=== PATIENT | female | born 1945 | race Caucasian/White ===

== ENCOUNTER 2022-04-28 10:57 | Emergency (ER) | payer MEDICARE, BC, SELFPAY ==
[2022-04-28 10:58] VITALS: BP 166/66; PULSE 82; RESP 18; TEMP 36.4; O2SAT 100; BMI 28.3
--- NOTE | 2022-04-28 11:13 | EKG12_ITS ---
Test Reason : DIZZINESS Blood Pressure : / mmHG Vent. Rate : 062 BPM Atrial Rate : 062 BPM P-R Int : 158 ms QRS Dur : 086 ms QT Int : 438 ms P-R-T Axes : 034 -26 018 degrees QTc Int : 444 ms Normal sinus rhythm Low voltage QRS Borderline ECG Confirmed by YARELI MAYES, MENDEZ ([id number]), scientific publications editor SHAHRIAR OLSON ([id number]) on 04/29/2022 9:17:14 AM Referred By: FIDELIA/NILO Confirmed By:MENDEZ DOWNS MD
--- NOTE | 2022-04-28 11:44 | EX.ED.DYSGE1 ---
HPI History of Present Illness Chief Complaint: Dizziness Informant: patient Onset/Context/Timing Onset: Days (4) Context: Sudden Onset Timing: Waxes and wanes Quality: Nauseated Location: Generalized Worsened by: Noise, lights Relieved by: Nothing Associated Symptoms Associated Symptoms: Syncopal episode last evening Narrative Narrative: Patient presents with dizziness and vertigo that has been getting worse over the past 4 days. Patient states this feels like previous episodes of vertigo but it is worse. Patient admits to some nausea but denies any vomiting. Patient states she has not eaten or drinking anything in the last 4 days due to the nausea. Patient states her symptoms are worse with noises and with lights. Patient states she did have a syncopal episode last night. Patient states she stood up and became dizzy and then passed out for a few seconds. Patient denies any chest pain or palpitations. Patient also admits to a recent cough. Patient states she has been taking meclizine at home with no improvement. [facility] Medical History (Updated 04/28/22 @ 14:[address] Ez Dalal DO) HTN (hypertension) Hypercholesterolemia Vertigo Home Medications diazepam 2 mg tablet 2 mg PO TID PRN PRN Vertigo #10 TABLETS 04/28/22 [Rx Last Taken Unknown] Allergy/AdvReac Type Severity Reaction Status Date / Time No Known Allergies Allergy Verified 04/28/22 10:58 Surgical History (Updated 04/28/22 @ 11:[address] Ez Dalal DO) Hx of removal of cyst Hx of tubal ligation Social History Smoking Status: Never smoker ROS ROS ED Constitutional Constitutional ED: Denies chills or fever(s) Eyes Eyes: Denies blurry vision or change in vision ENT ENT ED: Reports rhinorrhea; Denies sore throat Cardiovascular Cardiovascular: Denies chest pain or palpitations Respiratory/Chest Respiratory/Chest: Reports cough; Denies dyspnea Gastrointestinal Gastrointestinal: Reports nausea; Denies vomiting Genitourinary Genitourinary ED: Denies dysuria or hematuria Musculoskeletal Musculoskeletal: Denies back pain or neck pain Integumentary Denies abscess or rash Neurologic Neurologic: Reports headache(s); Denies weakness Allergic/Immunologic Allergic/Immunologic ED: Denies mouth swelling or urticaria EXAM Physical Exam Const Vital Signs: 04/28/22 10:58 04/28/22 11:08 04/28/22 12:56 Temperature 97.6 F L Temperature Source Temporal Pulse Rate 82 Pulse Rate [Lying] 77 Pulse Rate [Sitting (for 1 minute prior to obtaining)] 80 Pulse Rate [Standing (for 1 minute prior to obtaining)] 78 Respiratory Rate 18 Respiratory Effort Normal Respiratory Pattern Normal Blood Pressure 166/66 H Blood Pressure [Lying] 145/55 H Blood Pressure [Sitting (for 1 minute prior to obtaining)] 161/60 H Blood Pressure [Standing (for 1 minute prior to obtaining)] 132/63 H Blood Pressure Mean 99 Blood Pressure Mean [Lying] 85 Blood Pressure Mean [Sitting (for 1 minute prior to obtaining)] 93 Blood Pressure Mean [Standing (for 1 minute prior to obtaining)] 86 Pulse Ox 100 Oxygen Delivery Method Room Air 04/28/22 13:00 Temperature Temperature Source Pulse Rate 78 Pulse Rate [Lying] Pulse Rate [Sitting (for 1 minute prior to obtaining)] Pulse Rate [Standing (for 1 minute prior to obtaining)] Respiratory Rate 16 Respiratory Effort Respiratory Pattern Blood Pressure 132/63 H Blood Pressure [Lying] Blood Pressure [Sitting (for 1 minute prior to obtaining)] Blood Pressure [Standing (for 1 minute prior to obtaining)] Blood Pressure Mean 86 Blood Pressure Mean [Lying] Blood Pressure Mean [Sitting (for 1 minute prior to obtaining)] Blood Pressure Mean [Standing (for 1 minute prior to obtaining)] Pulse Ox 99 Oxygen Delivery Method Room Air Positive well nourished and well developed General Appearance ED: well developed and NAD HEENT Reports moist mucous membranes Eyes PERRL and EOMs intact bilaterally Eyes Narrative: There is some nystagmus noted with left lateral gaze. Neck supple and no JVD Resp normal respiratory effort and clear to auscultation bilaterally Cardio regular rate and regular rhythm GI normal to inspection, nondistended, normoactive bowel sounds and non-tender Palpation: soft Extremity normal to inspection General Extremety ED: Negative for edema or tenderness General Extremity: Negative for edema Neuro oriented x3, CN's II-XII intact bilaterally and no sensory deficits noted Sensorium / Orientation: alert Motor Exam: strength 5/5 throughout Psych mental status grossly normal Skin no rashes or lesions noted MDM MDM MDM Narrative Medical decision making narrative: Patient was given IV fluids, Reglan, and Benadryl. Patient was given a dose of Valium. CT scan of the brain was obtained. There are chronic changes. There is no acute intracranial abnormality. This was interpreted by the radiologist and reviewed by myself. EKG was obtained. On my interpretation, it showed a normal sinus rhythm with a rate of 62. HI interval, QRS interval, and QTc intervals were all normal. There is borderline left axis deviation at -26. There are no acute ST or T wave changes. CBC and basic metabolic profile were within normal limits. Urinalysis does not show any evidence of urinary tract infection or hematuria. Patient feels better on reevaluation and wants to go home. Patient was given a prescription for a short course of Valium. Patient was instructed to follow-up with her primary care physician in 5 to 7 days. Patient understood and was agreeable with the plan. All questions were answered. Lab Data Attestation: I reviewed the patient's lab results. Labs: Laboratory Results - last 24 hr 04/28/22 04/28/22 04/28/22 11:43 11:43 13:28 WBC 6.1 RBC 4.59 Hgb 14.4 Hct 42.1 MCV 91.7 MCH 31.4 MCHC 34.2 RDW Std Deviation 40.1 RDW Coeff of [place] 11.9 Plt Count 184 MPV 11.2 Immature Gran % (Auto) 0.500 Neut % (Auto) 73.5 H Lymph % (Auto) 15.8 L [place] % (Auto) 9.6 Eos % (Auto) 0.3 Baso % (Auto) 0.3 Absolute Neuts (auto) 4.5 Absolute Lymphs (auto) 0.97 Nucleated RBC % 0 Sodium 137 Potassium 3.3 L Chloride 101 Carbon Dioxide 27.0 Anion Gap 9 BUN 14 Creatinine 0.80 Estim Creat Clear Calc 43.73 Est GFR (MDRD) Af Amer 89 Est GFR (MDRD) Non-Af 74 BUN/Creatinine Ratio 17.5 Glucose 118 H Calcium 9.2 Urine Color Straw Urine Clarity Clear Urine pH 6.5 Ur Specific [place] 1.010 Urine Protein 15 H Urine Glucose (UA) Normal Urine Ketones 15 H Urine Occult Blood Negative Urine Nitrite Negative Urine Bilirubin Negative Urine Urobilinogen Normal Ur Leukocyte Esterase 100 H Urine RBC 0 SEEN Urine WBC 0-5 SEEN Ur Squamous Epith Cells 0-5 SEEN Urine Bacteria 1+ Urine Mucus 0 SEEN Radiography Diagnostic Testing: Clinical Impression(s) from Imaging Studies Brain CT 04/28/22 11:48 IMPRESSION: Chronic involutional changes of the brain. Mild degree of mucosal thickening along the inferior aspect of the left maxillary sinus and ethmoid sinuses. Electronically Signed: Amrik Craig MD at 12:54 EDT , EKG Initial EKG: Attestation: I personally reviewed and interpreted this EKG as follows: Interpretation: Sinus Rhythm (62) and No Acute Injury Pattern Prior EKG tracings: not available for review Prior: No Prior Discharge Plan Triage Chief Complaint: Dizziness Other Complaint: Nausea/Vomiting ED Provider: Ez Dalal Dx/Rx/DC Orders Clinical Impression: Vertigo, Headache Instructions: ED Vertigo, Unspecified Prescriptions: New diazepam [diazepam] 2 mg tablet 2 mg PO TID PRN PRN (Reason: Vertigo) Qty: 10 0RF Primary Care Provider: Sylvester Willson Referrals: Sylvester Willson DO [Primary Care Provider] - Keep Franko appointment Disposition Disposition: Home, Self Care
--- NOTE | 2022-04-28 11:48 | CT_ITS ---
STUDY: CT BRAIN WITHOUT CONTRAST REASON FOR EXAM: Female, 76 years old. Headache RADIATION DOSAGE (If Supplied By Facility): CTDIvol = ( 44.99 ) mGy, DLP = ( 748.30 ) mGycm TECHNIQUE: Transaxial CT imaging of the brain was performed without administration of intravenous contrast material. Individualized dose optimization techniques were used for this CT. COMPARISON: No relevant priors. FINDINGS: Normal soft tissue structures. Normal calvarium. There is mild cerebral atrophy with widening of the extra-axial spaces and ventricular dilatation. Normal white matter tracts of the cerebral hemispheres. Normal basal ganglia and thalami. Normal brainstem. Normal cerebellum. There is no intracranial hemorrhage. There are no findings of an acute ischemic infarction. Atherosclerotic calcification of the cavernous portions of the internal carotid arteries bilaterally. Mild degree of mucosal thickening along the inferior aspect of the left maxillary sinus and the ethmoid sinuses bilaterally. CT/Brain/Head without Contrast IMPRESSION: Chronic involutional changes of the brain. Mild degree of mucosal thickening along the inferior aspect of the left maxillary sinus and ethmoid sinuses. Electronically Signed: Amrik Craig MD at 12:54 EDT ,
[2022-04-28] MEDS: DiphenhydrAMINE 50 MG/ML Syringe 25 MG IV (12:08)
[2022-04-28] MEDS: 0.9% Normal Saline 1,000 ML 1000 ML IV (12:08)
[2022-04-28] MEDS: Metoclopramide 10 MG/2 ML Vial IV (12:08)
[2022-04-28] MEDS: diazePAM 5 MG Tablet 2.5 MG PO (12:08)
[2022-04-28 12:15] LABS: Absolute Lymphocyte Count 0.97 X10^3/uL (0.83-4.51); Absolute Neutrophil Count 4.5 X10^3/uL (2.0-7.7); Basophil# 0.02 X10^3/uL; Basophil% 0.3 % (0-1); Eosinophil# 0.02 X10^3/uL; Eosinophils% 0.3 % (0-5); Hematocrit 42.1 % (37-47); Hemoglobin 14.4 g/dL (12.0-15.0); Lymphocyte # 0.97 X10^3/ul (0.83-4.51); Lymphocyte % 15.8 % (19-41); Mean Corp Hgb Conc 34.2 g/dL (32-36); Mean Corpuscular Hgb 31.4 pg (27.0-32.0); Mean Corpuscular Volume 91.7 fL (81-99); Mean Platelet Vol. 11.2 fl (6.2-12.0); Monocyte# 0.59 X10^3/uL; Monocyte% 9.6 % (0-10); NRBC Flagged by Analyzer 0 % (0-5); Neutrophil # 4.49 X10^3/uL (2.7-7.7); Neutrophil % 73.5 % (47-70); Platelet Count 184 K/mm3 (150-450); RBC Distribution Width CV 11.9 % (11.6-14.6); RBC Distribution Width SD 40.1 fl (35.1-43.9); Red Blood Count 4.59 M/mm3 (4.2-5.4); White Blood Count 6.1 K/mm3 (4.4-11.0)
[2022-04-28 12:27] LABS: Anion Gap 9 (5-15); BUN 14 mg/dL (7-18); BUN/Creat Ratio 17.5 RATIO (10-20); Calcium,Total 9.2 mg/dL (8.5-10.1); Chloride 101 mmol/L (98-107); EST Glomerular Filtration Rate 74 mL/min (>60); Est Glom Filt Rate - Afr Amer 89 mL/min (>60); Estimated Creatinine Clearance 43.73 ml/min; Glucose 118 mg/dL (74-106); Potassium 3.3 mmol/L (3.5-5.1); Sodium Level 137 mmol/L (136-145)
[2022-04-28 12:56] VITALS: BP 132/63; BP 145/55; BP 161/60; PULSE 77; PULSE 78; PULSE 80
[2022-04-28 13:00] VITALS: BP 132/63; PULSE 78; RESP 16; O2SAT 99
[2022-04-28 13:33] LABS: Mucous, Urine 0 SEEN /hpf (<or=2+); Red Blood Cells-Urine 0 SEEN /hpf (0-5)
[2022-04-28 13:34] LABS: Color, Urine Straw (Yellow); Glucose, Dipstick Normal (Normal); Ketone-Dipstick 15 mg/dl (Negative); Leukocyte Esterase-Dipstick 100 /ul (Negative); Nitrite-Dipstick Negative (Negative); Occult Blood-Urine Negative /ul (Negative); Protein-Dipstick 15 mg/dl (Negative); Urine Bilirubin Dipstick Negative (Negative); Urine Clarity Clear (Clear); Urine Urobilinogen Normal (Normal); Urine pH 6.5 (5.0 - 8.0)
[2022-04-28 13:42] LABS: Squamous Epithelial Cells - UA 0-5 SEEN /hpf (5-10); White Blood Cells 0-5 SEEN /hpf (0-5)
[2022-04-28 13:43] LABS: Bacteria 1+ /hpf (None Seen)
[2022-04-28 14:45] VITALS: BP 140/59; PULSE 62; RESP 18; O2SAT 97
== END 2022-04-28 14:46 | disposition home or self-care (01) ==
PROVIDERS: Emergency Provider Emergency Medicine; PCP Family Medicine; Visit Provider Emergency Medicine
DX: R11.2 Nausea with vomiting, unspecified (principal); R42 Dizziness and giddiness
CPT/HCPCS: 70450; 80048; 81001; 85025; 93005; 96361; 96374; 96375; 99285; J7030; A4216

== ENCOUNTER 2024-02-10 12:20 | Emergency (ER) | payer MEDICARE, BC, SELFPAY ==
[2024-02-10 12:21] VITALS: BP 149/72; PULSE 78; RESP 15; TEMP 36.6; O2SAT 96; BMI 28.7
--- NOTE | 2024-02-10 12:41 | EX.ED.DYSGE1 ---
HPI History of Present Illness Chief Complaint: Dizziness [facility] Medical History Hypercholesterolemia HTN (hypertension) Vertigo Home Medications ?Medication ?Instructions ?Recorded ?Last Taken ?Type diazepam 2 mg tablet 2 mg PO TID PRN PRN Vertigo #10 04/28/22 Unknown Rx TABLETS diazepam 2 mg tablet 2 mg PO TID PRN PRN Vertigo 7 days 02/10/24 Unknown Rx #21 TABLETS Allergy/AdvReac Type Severity Reaction Status Date / Time No Known Allergies Allergy Verified 02/10/24 12:23 Surgical History Hx of removal of cyst Hx of tubal ligation Social History Smoking Status: Never smoker EXAM Physical Exam Const Vital Signs: 02/10/24 12:21 02/10/24 12:30 02/10/24 14:17 Temperature 97.8 F Temperature Source Temporal Pulse Rate 78 74 Respiratory Rate 15 16 Respiratory Effort Normal Non-Labored Blood Pressure 149/72 H 155/63 H Blood Pressure Mean 97 93 Pulse Ox 96 97 Oxygen Delivery Method Room Air Room Air MDM MDM MDM Narrative Medical decision making narrative: HISTORY OF PRESENT ILLNESS: 78-year-old female history of vertigo presents with dizziness. Notes this began approximately 9 AM on 02/10/2024. No NEFF. No fever, neck stiffness. NO vomiting. No CP, SOB. No syncope. No palpitations. NO abdominal pain. NO focal weakenss, numbness or tingling. REVIEW OF SYSTEMS: Pertinent positives: Dizziness Pertinent negatives: NEFF, vomiting, focal weakness. PHYSICAL EXAM: Nursing triage notes reviewed, Vital signs reviewed Constitutional: please see mdm HENT: MMM Eyes: Pupils equal round and reactive to light, Extraocular muscles intact Neck: No stridor, no JVD, full neck ROM Lungs: Clear to auscultation, No wheezing or rales. No increased work of breathing, no conversational dyspnea, no accessory muscle use, no nasal flaring. No respiratory distress noted Heart: Regular rate and rhythm, No murmurs, No rubs and No gallops, 2+ distal pulses (radial, femoral, posterior tibial) in all extremities Abdomen: Soft, there is no tenderness, rigidity, rebound or guarding, no obvious peritoneal signs, no palpable pulsatile abdominal masses, no auscultated abdominal bruit : No CVAT Extremities: No edema Neuro: Alert and oriented x3, neuro exam at baseline, cranial nerves II through XII are intact. No pain with extraocular muscle movement. There is negative test of skew. 5 of 5 strength in upper and lower extremities in flexion extension. Intact sensation to light touch in upper and lower extremity dermatomes. No truncal or extremity ataxia. No dysdiadochokinesia. Normal gait. 2+ reflexes in upper and lower extremities. No meningeal signs. Negative Babinski. NIH of 0. Skin: No rash or lesions noted MEDICAL DECISION MAKING: Chief Complaint: Dizziness External records reviewed: CT scan of the brain from 2021 shows chronic and positional changes Factors affecting care: Vertigo Social determinants of health: none History obtained from others: none Consults: none [facility] Narrative: Patient was initially hemodynamically stable, afebrile, nontoxic-appearing. Exam without focal deficit, ataxia. NIH of 0. No obvious head trauma. Patient stated this felt like her prior history of vertigo however given advanced age and dizziness I did obtain a larger lab and imaging workup. I considered the following differential diagnosis: Vertigo, anemia, electrolyte disturbance, arrhythmia, ICH, posterior circulation CVA IV established, fluids were given, p.o. benzodiazepine given for symptomatic relief. I obtained a broad lab and imaging workup to further elucidate the etiology the patient complaint. ALL IMAGES (IF OBTAINED) HAVE BEEN PERSONALLY REVIEWED AND INTERPRETED BY MYSELF. EKG with normal sinus rhythm, left ax deviation, normal intervals, no STEMI CT scan of the head shows no evidence of ICH or bleed I have personally reviewed the patient's chest x-ray. Chest x-ray is unremarkable for pulmonary edema, pneumothorax, pneumonia or focal cardiopulmonary abnormality. CBC without leukocytosis, severe anemia, no thrombocytopenia. CMP without evidence of acute kidney injury, significant electrolyte abnormality, anion gap, no evidence hepatobiliary pathology. High-sensitivity troponin is negative, no evidence of myocardial ischemia The amalgamation of the patient's history, physical exam, labs images suggest no acute life-limiting etiology. I suspect the patient's etiology secondary to her underlying vertigo. She noted symptomatic relief after oral benzodiazepine IV fluids. Will give a as needed prescription for benzodiazepines. Discussed risk and benefits of benzodiazepines including sedation, respiratory depression. Informed the patient not to operate her machinery or drive after taking. She promised to respect these limitations of the medication and to only take as needed. She promised to follow with her primary care physician. I did give neurology follow-up as well. Patient was discharged stable condition The patient and/or family, caregivers express understanding. The patient and/or family, caregivers agrees with the plan. Shared decision making: I will have a discussion with the patient and or visitors regarding risk/benefits of further testing or admission. They will be made aware of of the risk/benefits inherent in this decision they will be given the opportunity to voice understanding. Total critical care time today provided was at least 0 minutes. This excludes separately billable procedures. Critical care time (if documented) is secondary to the patient having high probability of clinically significant/life threatening deterioration in the patient's condition which required my urgent intervention. Impression: 1. Dizziness 2. History of vertigo Dispo: Discharge home This note was generated with [employer] dictation software. It may contain incorrect words, spelling, and punctuation that were not noted in review of the chart prior to signing. Lab Data Labs: Laboratory Results - last 24 hr 02/10/24 13:26 WBC 6.2 RBC 4.50 Hgb 14.0 Hct 42.0 MCV 93.3 MCH 31.1 MCHC 33.3 RDW Std Deviation 41.6 RDW Coeff of [place] 12.1 Plt Count 159 MPV 11.7 Immature Gran % (Auto) 0.500 Neut % (Auto) 84.2 H Lymph % (Auto) 9.9 L [place] % (Auto) 4.7 Eos % (Auto) 0.2 Baso % (Auto) 0.5 Absolute Neuts (auto) 5.2 Absolute Lymphs (auto) 0.61 L Nucleated RBC % 0 Sodium 142 Potassium 3.7 Chloride 108 H Carbon Dioxide 26.0 Anion Gap 8 BUN 13 Creatinine 0.77 Estim Creat Clear Calc 51.84 Est GFR (MDRD) Af Amer 93 Est GFR (MDRD) Non-Af 77 BUN/Creatinine Ratio 16.9 Glucose 170 H Calcium 9.4 Total Bilirubin 0.70 AST 23 ALT 23 Alkaline Phosphatase 85 Troponin I High Sens 4 Total Protein 7.9 Albumin 3.9 Globulin 4.0 Albumin/Globulin Ratio 1.0 Radiography Diagnostic Testing: Clinical Impression(s) from Imaging Studies Chest X-Ray 02/10/24 14:00 IMPRESSION: No radiographic evidence of acute cardiopulmonary disease. Electronically Signed: Carline Ba MD at 14:23 EDT , Brain CT 02/10/24 14:02 IMPRESSION: No acute intracranial process. Electronically Signed: Carline Ba MD at 14:22 EDT , Discharge Plan Triage Chief Complaint: Dizziness ED Provider: Remington Ortiz Dx/Rx/DC Orders Instructions: ED BPV Vertigo Prescriptions: New diazepam 2 mg tablet 2 mg PO TID PRN PRN (Reason: Vertigo) 7 Days Qty: 21 0RF No Action diazepam [diazepam] 2 mg tablet 2 mg PO TID PRN PRN (Reason: Vertigo) Qty: 10 0RF Primary Care Provider: Fabiano Velasco Referrals: Sylvester Willson DO [Non-Staff] - Activity Restrictions/Additional Instructions: Thank you for trusting us with your care today! Please take meclizine for baseline dizziness/vertigo control. If meclizine fails to relieve your symptoms please take diazepam as needed. Please do not take if you are driving or operate heavy machinery. Please not take if you can be active as it can lead to falls, sedation. Please return to the emergency department if your symptoms change or worsen. Please follow with your primary care physician for further outpatient evaluation and management. Print Language: Wolof Disposition Disposition: Home, Self Care
--- NOTE | 2024-02-10 13:19 | EKG12_ITS ---
Test Reason : DIZZINESS/NAUSEA Blood Pressure : / mmHG Vent. Rate : 066 BPM Atrial Rate : 066 BPM P-R Int : 172 ms QRS Dur : 088 ms QT Int : 424 ms P-R-T Axes : 071 -29 045 degrees QTc Int : 444 ms Normal sinus rhythm Low voltage QRS Borderline ECG Confirmed by BEN MAYES, MEGHAN ([id number]), newspaper editor LIBORIO HIGH ([id number]) on 02/16/2024 1:38:22 PM Referred By: Confirmed By:EMIR CONTERRAS MD
[2024-02-10 13:37] LABS: Absolute Lymphocyte Count 0.61 X10^3/uL (0.83-4.51); Absolute Neutrophil Count 5.2 X10^3/uL (2.0-7.7); Basophil# 0.03 X10^3/uL; Basophil% 0.5 % (0-1); Eosinophil# 0.01 X10^3/uL; Eosinophils% 0.2 % (0-5); Lymphocyte # 0.61 X10^3/ul (0.83-4.51); Lymphocyte % 9.9 % (19-41); Mean Corp Hgb Conc 33.3 g/dL (32-36); Mean Corpuscular Hgb 31.1 pg (27.0-32.0); Mean Corpuscular Volume 93.3 fL (81-99); Mean Platelet Vol. 11.7 fl (6.2-12.0); Monocyte# 0.29 X10^3/uL; Monocyte% 4.7 % (0-10); NRBC Flagged by Analyzer 0 % (0-5); Neutrophil # 5.21 X10^3/uL (2.7-7.7); Neutrophil % 84.2 % (47-70); Platelet Count 159 K/mm3 (150-450); RBC Distribution Width CV 12.1 % (11.6-14.6); RBC Distribution Width SD 41.6 fl (35.1-43.9); White Blood Count 6.2 K/mm3 (4.4-11.0)
[2024-02-10] MEDS: diazePAM 2 MG Tablet PO (13:48)
[2024-02-10] MEDS: 0.9% Normal Saline (1000mL) 1,000 ML 1000 ML IV (13:48)
[2024-02-10] MEDS: Ondansetron 4 MG/2 ML Vial IV (13:49)
[2024-02-10 13:53] LABS: AST(SGOT) 23 U/L (15-37); Alanine Aminotransfer ALT/SGPT 23 U/L (13-56); Albumin, Serum 3.9 g/dL (3.2-5.0); Alkaline Phosphatase 85 U/L (45-117); Anion Gap 8 (5-15); BUN 13 mg/dL (7-18); BUN/Creat Ratio 16.9 RATIO (10-20); Calcium,Total 9.4 mg/dL (8.5-10.1); Chloride 108 mmol/L (98-107); Creatinine, Serum 0.77 mg/dL (0.55-1.02); EST Glomerular Filtration Rate 77 mL/min (>60); Est Glom Filt Rate - Afr Amer 93 mL/min (>60); Estimated Creatinine Clearance 51.84 ml/min; Glucose 170 mg/dL (74-106); Potassium 3.7 mmol/L (3.5-5.1); Protein, Total 7.9 g/dL (6.4-8.2); Sodium Level 142 mmol/L (136-145); Troponin-I HS 4 pg/mL (3.0-54.0)
--- NOTE | 2024-02-10 14:00 | RAD_ITS ---
INDICATION: dizziness EXAMINATION/TECHNIQUE: X-RAY - XR Chest 1 View COMPARISON: No relevant prior comparison study available FINDINGS: LINES/DEVICES: None. LUNGS: No consolidation, edema or effusion. No pneumothorax. MEDIASTINUM AND CARDIOVASCULAR STRUCTURES: Cardiac silhouette not enlarged. Central airways and mediastinal contour are unremarkable. BONES AND SOFT TISSUES: Unremarkable. RAD/Chest 1 View (Portable) IMPRESSION: No radiographic evidence of acute cardiopulmonary disease. Electronically Signed: Carline Ba MD at 14:23 EDT ,
--- NOTE | 2024-02-10 14:02 | CT_ITS ---
INDICATION: dizziness EXAMINATION: CT BRAIN - CT Head or Brain W/O Contrast Injection TECHNIQUE: Multiple axial images were obtained of the head without intravenous contrast. The protocol utilizes one or more of the following dose reduction techniques: automated exposure control, adjustment of mA and/or kV according to patient size,and/or use of iterative reconstruction technique. IV Contrast dosage and agent: None. RADIATION DOSAGE (If Supplied By Facility): CTDIvol = ( 47.06 ) mGy, DLP = ( 855.03 ) mGycm COMPARISON: April 28, 2022 FINDINGS: BRAIN PARENCHYMA: No intra- or extra-axial hemorrhage. No evidence of acute infarct. No intracranial mass or mass effect. There is preservation of the roberts/white matter interface. Posterior fossa structures are unremarkable. CSF SPACES: Appropriate for age. No hydrocephalus. Basal cisterns are patent. CALVARIUM, SKULL BASE, PARANASAL SINUSES AND MASTOID AIR CELLS: Clear. No discrete lytic or blastic abnormalities. ORBITS: Both globes, extraocular muscles, optic nerves and retrobulbar fat appear unremarkable. ASPECTS Score for Acute Strokes: 10 CT/Brain/Head without Contrast IMPRESSION: No acute intracranial process. Electronically Signed: Carilne Ba MD at 14:22 EDT ,
[2024-02-10 14:17] VITALS: BP 155/63; PULSE 74; RESP 16; O2SAT 97
[2024-02-10 14:56] VITALS: BP 145/81; PULSE 87; RESP 16; TEMP 36.1; O2SAT 98
== END 2024-02-10 14:57 | disposition home or self-care (01) ==
PROVIDERS: Emergency Provider Emergency Medicine; PCP Family Medicine; Visit Provider Emergency Medicine
DX: R42 Dizziness and giddiness (principal); I10 Essential (primary) hypertension; E78.00 Pure hypercholesterolemia, unspecified; Z79.899 Other long term (current) drug therapy
CPT/HCPCS: 70450; 71045; 80053; 84484; 85025; 93005; 96374; 99285; J7030; A4216; J2405